=== PATIENT | male | born 1985 | race African-American/Black ===

== ENCOUNTER 2021-12-27 16:46 | Emergency (ER) | payer SELFPAY ==
[~2021-12-27] VITALS: Ht 167.6 cm; Wt 63.6 kg
[2021-12-27 16:50] VITALS: BP 137/71
[2021-12-27] MEDS ORDERED: LIDOCAINE 1%/EPI 1:100,000 20 ML VIAL. INJ ONE (17:30)
[2021-12-27] MEDS ORDERED: BACITRACIN TOPICAL OINT PACKET. TP ONE (18:15)
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
== END 2021-12-27 18:35 | disposition home or self-care (01) ==
LOC: ER 16:46
DX: S51.811A Laceration without foreign body of right forearm, initial encounter (principal); W26.0XXA Contact with knife, initial encounter; Y93.89 Activity, other specified; Y92.89 Other specified places as the place of occurrence of the external cause; Y99.8 Other external cause status
CPT/HCPCS: 12001; 99283; J3490